=== PATIENT | female | born 1995 | race African-American/Black ===

== ENCOUNTER 2024-09-16 12:21 | Emergency (ER) | payer MEDICAID ==
[~2024-09-16] VITALS: Ht 165.1 cm; Wt 105.0 kg
[2024-09-16 12:23] VITALS: O2SAT 100
[2024-09-16 12:28] VITALS: BP 148/90; TEMP 98.6
[2024-09-16] MEDS ORDERED: ALBU18HF2 IH (13:20)
[2024-09-16] MEDS ORDERED: P50 MT (13:21)
[2024-09-16] MEDS: PREDNISONE 20MG TABLET PO STA (13:28)
[2024-09-16] MEDS: ALBUTEROL (0.083%) 2.5MG/3ML NEB HHN STA (13:33)
[2024-09-16] MEDS: IPRATROPIUM BROMIDE (0.02%) 0.5MG/2.5ML NEB HHN STA (13:34)
[2024-09-16 13:35] VITALS: PULSE 80; RESP 19; O2SAT 97
[2024-09-16] MEDS ORDERED: ONDA-239 PO (19:41)
== END 2024-09-16 14:08 | disposition home or self-care (01) ==
LOC: ER 12:34
DX: J45.901 Unspecified asthma with (acute) exacerbation (principal)
CPT/HCPCS: 71045; 94640; 93005; 99283; J7512; Z7610 ×3

== ENCOUNTER 2024-09-16 18:32 | Emergency (ER) | payer MEDICAID ==
[~2024-09-16] VITALS: Ht 172.7 cm; Wt 86.0 kg
[~2024-09-16 18:32] MED LIST: ALBU18HF2 IH; P50 MT
[2024-09-16 18:35] VITALS: O2SAT 99
[2024-09-16] MEDS ORDERED: ONDA-239 PO (19:41)
[2024-09-16] MEDS: ONDANSETRON 4MG ODT PO ONE (19:51)
[2024-09-16 21:10] VITALS: BP 126/66; PULSE 99; RESP 17; TEMP 36.89184; O2SAT 99
== END 2024-09-16 21:11 | disposition home or self-care (01) ==
LOC: ER 18:32
DX: R11.0 Nausea (principal); R53.1 Weakness; J45.901 Unspecified asthma with (acute) exacerbation; Z59.00 Homelessness unspecified
CPT/HCPCS: 99283; Q0162